=== PATIENT | female | born 1945 | race Caucasian/White ===

== ENCOUNTER → 2017-08-09 | Outpatient (CLI) | payer MEDICARE ==
[~2017-08-09] MED LIST: DICL75 PO; FAMO20 PO; HYDR-3129 PO
--- NOTE | 2017-08-10 18:45 | EKG ---
Date Performed: 08/09/2017 Time Performed: 12:28:30 PTAGE: 71 years EKG: Sinus tachycardia with sinus arrhythmia. Possible inferior infarct - age undetermined Possi ble anterior infarct - age undetermined Low QRS voltages in precordial leads When compared to previou s tracing, sinus rate is slightly higher. Abnormal ECG PREVIOUS TRACING : 07/28/2013 12.10 DOCTOR: Juan Antonio Latif Interpretating Date/Time 08/10/2017 18:44:02
== END ==
LOC: HCAV 12:17
PROVIDERS: ATTEND Orthopaedic Surgery Sports Medicine
DX: Z01.810 Encounter for preprocedural cardiovascular examination (principal); G56.01 Carpal tunnel syndrome, right upper limb; G56.02 Carpal tunnel syndrome, left upper limb; R94.31 Abnormal electrocardiogram [ECG] [EKG]
CPT/HCPCS: 93005

== ENCOUNTER 2017-09-20 15:41 | Emergency (ER) | payer MEDICARE ==
[~2017-09-20] VITALS: Ht 154.9 cm; Wt 70.1 kg
[2017-09-20 15:43] VITALS: BP 145/69; PULSE 118; RESP 16; TEMP 99.5; O2SAT 96
[2017-09-20] MEDS ORDERED: SODIUM CHLOR 0.9% 1000 ML INJ 1,000 ML IV SCH (16:33)
[2017-09-20] MEDS ORDERED: DICL75TA PO (16:33)
[2017-09-20] MEDS ORDERED: FAMO1TAB37 PO (16:33)
[2017-09-20] MEDS ORDERED: GABA300C5 PO (16:33)
[2017-09-20] MEDS ORDERED: TRAM50TA PO (16:33)
--- NOTE | 2017-09-20 16:36 | PD ---
HPI Chief Complaint: GI Complaint Time Seen by Provider: 16:33 Travel History International Travel<30 days: No Contact w/Intl Traveler<30days: No Traveled to known affect area: No History of Present Illness HPI Noted blood in her stool, over the last month or so she has had some speckling changes to her stool. But over the last couple of days she has noted an increase in the amount of reddish hue in her stool. This increase her concern and made her come into the emergency department. Patient denies feeling lightheaded, weak, no active vomiting or diarrhea... However the patient is experiencing some nausea whenever she smells food. Patient denies any aggravating or alleviating factors. Patient denies any associated factors such as fever, rash, cough, rhinorrhea, sore throat, headache, neck pain, chest pain , back pain or any abdominal pain. No known drug allergy Past medical history significant for detached retina status post repair, rheumatoid arthritis, , hysterectomy, and appendectomy. PFSH Past Medical History Hx Anticoagulant Therapy: No Cancer: No Cardiovascular Problems: No Diabetes: No Endocrine: No Genitourinary: No Hepatitis: No Hiatal Hernia: No Immune Disorder: No Musculoskeletal: Yes (ARTHRITIS (OA & RA)) Neurologic: No Psychiatric: No Reproductive: No Respiratory: No Thyroid Disease: No ?: Not Past Surgical History AICD: No Eye Surgery: Yes (DEA. RETINA REP.) Gynecologic Surgery: Yes (C SECTION, HYSTERECTOMY/ APPY) Joint Replacement: No Pacemaker: No Social History Tobacco Use: No Substance Use: No Allergies-Medications (Allergen,Severity, Reaction): Coded Allergies: No Known Allergies (Unverified Adverse Reaction, Unknown, 09/20/17) Reported Meds & Prescriptions Reported Meds & Active Scripts Active Reported Gabapentin 300 Mg Cap 300 Mg PO HS Pepcid (Famotidine) 20 Mg Tab 10 Mg PO DAILY Diclofenac Sodium DR (Diclofenac Sodium) 75 Mg Tabdr 75 Mg PO BID Tramadol (Tramadol HCl) 50 Mg Tab 50 Mg PO BID Review of Systems General / Constitutional: No: Fever Eyes: No: Visual changes HENT: No: Headaches Cardiovascular: No: Chest Pain or Discomfort Respiratory: No: Shortness of Breath Gastrointestinal: Positive: Changes in Bowel Habits Genitourinary: No: Dysuria Musculoskeletal: No: Pain Skin: No Rash Neurologic: No: Weakness Psychiatric: No: Depression Endocrine: No: Polydipsia Hematologic/Lymphatic: No: Easy Bruising Physical Exam Narrative GENERAL: SKIN: Warm and dry. HEAD: Atraumatic. Normocephalic. EYES: Pupils equal and round. No scleral icterus. No injection or drainage. ENT: No nasal bleeding or discharge. Mucous membranes pink and moist. NECK: Trachea midline. No JVD. CARDIOVASCULAR: Regular rate and rhythm. RESPIRATORY: No accessory muscle use. Clear to auscultation. Breath sounds equal bilaterally. GASTROINTESTINAL: Abdomen soft, non-tender, nondistended. MUSCULOSKELETAL: Extremities without clubbing, cyanosis, or edema. No obvious deformities. NEUROLOGICAL: Awake and alert. No obvious cranial nerve deficits. Motor grossly within normal limits. Five out of 5 muscle strength in the arms and legs. Normal speech. PSYCHIATRIC: Appropriate mood and affect; insight and judgment normal. Data Data Last Documented VS Vital Signs Date Time Temp Pulse Resp B/P (MAP) Pulse Ox O2 Delivery O2 Flow Rate FiO2 09/20/17 17:10 102 16 126/62 (83) 95 Room Air 09/20/17 15:43 99.5 Orders Orders Complete Blood Count With Diff (09/20/17 16:33) Comprehensive Metabolic Panel (09/20/17 16:33) Prothrombin Time / Inr (Pt) (09/20/17 16:33) Act Partial Throm Time (Ptt) (09/20/17 16:33) Type And Screen (09/20/17 16:33) Ecg Monitoring (09/20/17 16:33) Iv Access Insert/Monitor (09/20/17 16:33) Oximetry (09/20/17 16:33) Pantoprazole Inj (Protonix Inj) (09/20/17 16:45) Sodium Chlor 0.9% 1000 Ml Inj (Ns 1000 M (09/20/17 16:33) Sodium Chloride 0.9% Flush (Ns Flush) (09/20/17 16:45) Ondansetron Inj (Zofran Inj) (09/20/17 17:30) Labs Laboratory Tests Test 09/20/17 16:50 White Blood Count 10.0 TH/MM3 Red Blood Count 4.13 MIL/MM3 Hemoglobin 12.0 GM/DL Hematocrit 36.3 % Mean Corpuscular Volume 87.9 FL Mean Corpuscular Hemoglobin 29.1 PG Mean Corpuscular Hemoglobin Concent 33.1 % Red Cell Distribution Width 12.1 % Platelet Count 387 TH/MM3 Mean Platelet Volume 7.6 FL Neutrophils (%) (Auto) 76.3 % Lymphocytes (%) (Auto) 8.9 % Monocytes (%) (Auto) 13.8 % Eosinophils (%) (Auto) 0.7 % Basophils (%) (Auto) 0.3 % Neutrophils # (Auto) 7.6 TH/MM3 Lymphocytes # (Auto) 0.9 TH/MM3 Monocytes # (Auto) 1.4 TH/MM3 Eosinophils # (Auto) 0.1 TH/MM3 Basophils # (Auto) 0.0 TH/MM3 CBC Comment AUTO DIFF Prothrombin Time 12.6 SEC Prothromb Time International Ratio 1.2 RATIO Activated Partial Thromboplast Time 41.3 SEC Blood Urea Nitrogen 14 MG/DL Creatinine 0.67 MG/DL Random Glucose 127 MG/DL Total Protein 7.5 GM/DL Albumin 2.3 GM/DL Calcium Level 8.5 MG/DL Alkaline Phosphatase 107 U/L Aspartate Amino Transf (AST/SGOT) 16 U/L Alanine Aminotransferase (ALT/SGPT) 17 U/L Total Bilirubin 0.7 MG/DL Sodium Level 132 MEQ/L Potassium Level 3.5 MEQ/L Chloride Level 98 MEQ/L Carbon Dioxide Level 22.3 MEQ/L Anion Gap 12 MEQ/L Estimat Glomerular Filtration Rate 87 ML/MIN MDM Medical Decision Making Medical Screen Exam Complete: Yes Emergency Medical Condition: Yes Medical Record Reviewed: Yes Differential Diagnosis GI bleed stable versus unstable versus bleeding internal hemorrhoid versus gastritis/peptic ulcer disease Narrative Course CBC shows no leukocytosis, no anemia, normal platelet count, no left shift. Coagulation profile is within normal limits Electrolyte all within normal limits, normal kidney and liver functions. Patient gave history that she has already had a a colonoscopy which showed internal hemorrhoids, done by Dr. Kovacs, patient states that she did not have those hemorrhoids stripped or removed. Based on this historical fact it is believed that her source of GI bleed is likely the same internal hemorrhoid. Patient will need therapeutic colonoscopy for hemorrhoid removal. Currently patient's H&H is stable enough that the patient can perform this as an outpatient procedure. No current need for urgent admission Diagnosis Primary Impression: GI bleed, hemodynamically stable Referrals: Laury Kovacs MD FOR FURTHER CARE OF YOUR INTERNAL HEMORRHOIDS PREVIOUSLY DIAGNOSED BY DR KOVACS IN APR 2017 Patient Instructions: General Instructions, Hemorrhoids (DC) Additional Instructions: Your advised to avoid diclofenac while you have blood in your stool. As this medication can increase the chances of ongoing bleeding. And stated advised to take your tramadol for breakthrough pain only and can take Tylenol over-the- counter as well Scripts Ondansetron Odt (Zofran Odt) 4 Mg Tab 4 MG SL Q8HR Y for Nausea/Vomiting, #30 TAB 0 Refills Prov: Raymond Edwards MD 09/20/17 Disposition: 01 DISCHARGE HOME Condition: Stable Raymond Edwards MD Sep 20, 2017 16:36
[2017-09-20] MEDS ORDERED: SODIUM CHLORIDE 0.9% FLUSH 10 ML FLUSH IVF PRN (16:45)
[2017-09-20] MEDS ORDERED: PANTOPRAZOLE SODIUM 40 MG VIAL IVP ONE (16:45)
[2017-09-20 17:10] VITALS: BP 126/62; PULSE 102; RESP 16; O2SAT 95; O2SAT 96
[2017-09-20 17:22] LABS: AUTOMATED NEUTROPHIL # 7.6 TH/MM3 (1.8-7.7); BASOPHIL % 0.3 % (0.0-2.0); EOSINOPHIL # 0.1 TH/MM3 (0-0.4); EOSINOPHIL % 0.7 % (0.0-4.0); HEMATOCRIT 36.3 % (35.0-46.0); LYMPH % 8.9 % (9.0-44.0); LYMPHOCYTE # 0.9 TH/MM3 (1.0-4.8); MEAN CELL VOLUME 87.9 FL (80.0-100.0); MEAN CORPUSCULAR HEMOGLOBIN 29.1 PG (27.0-34.0); MEAN CORPUSCULAR HGB CONC 33.1 % (32.0-36.0); MEAN PLATELET VOLUME 7.6 FL (7.0-11.0); MONO % 13.8 % (0.0-8.0); MONOCYTE # 1.4 TH/MM3 (0-0.9); NEUT % 76.3 % (16.0-70.0); PLATELET COUNT 387 TH/MM3 (150-450); RED BLOOD COUNT 4.13 MIL/MM3 (4.00-5.30); RED CELL DISTRIBUTION WIDTH 12.1 % (11.6-17.2)
[2017-09-20] MEDS ORDERED: ONDANSETRON HCL 4 MG/2 ML VIAL IVP ONE (17:30)
[2017-09-20 17:43] LABS: CHLORIDE 98 MEQ/L (98-107); SODIUM (NA) 132 MEQ/L (136-145)
[2017-09-20 17:47] LABS: ALBUMIN 2.3 GM/DL (3.4-5.0); BICARBONATE 22.3 MEQ/L (21.0-32.0); CALCIUM 8.5 MG/DL (8.5-10.1); GLUCOSE,RANDOM 127 MG/DL (74-106); INTERNATIONAL NORMALIZED RATIO 1.2 RATIO; PROTHROMBIN TIME - PATIENT 12.6 SEC (9.8-11.6)
[2017-09-20 17:48] LABS: BLOOD UREA NITROGEN 14 MG/DL (7-18)
[2017-09-20 17:50] LABS: ALT (GPT) 17 U/L (10-53); AST (GOT) 16 U/L (15-37)
[2017-09-20 17:51] LABS: CREATININE 0.67 MG/DL (0.50-1.00); GLOMERULAR FILTRATION RATE 87 ML/MIN (>89)
[2017-09-20 17:52] LABS: TOTAL PROTEIN 7.5 GM/DL (6.4-8.2)
[2017-09-20 17:53] LABS: ALKALINE PHOSPHATASE 107 U/L (45-117); TOTAL BILIRUBIN ADULT 0.7 MG/DL (0.2-1.0)
[2017-09-20 19:36] VITALS: BP 114/62; PULSE 89; RESP 16; O2SAT 97
[2017-09-20] MEDS ORDERED: ZOFR4TAB3 SL (19:37)
[2017-09-20 19:42] LABS: BANDS 11 % (0-6); LYMPHOCYTES 18 % (9-44); METAMYELOCYTES 5 % (0-1); MONOCYTES 24 % (0-8); NEUTROPHIL # MANUAL DIFF 5.8 TH/MM3 (1.8-7.7); POLYS (SEG NEUTROPHILS) 42 % (16-70)
[2017-09-20 20:27] VITALS: BP 110/54
== END 2017-09-20 20:32 | disposition home or self-care (01) ==
LOC: PHED 15:41
DX: K92.2 Gastrointestinal hemorrhage, unspecified (principal); K64.8 Other hemorrhoids; M19.90 Unspecified osteoarthritis, unspecified site; M06.9 Rheumatoid arthritis, unspecified
CPT/HCPCS: 80053; 85007; 85027; 85610; 85730; 86850; 86900; 86901; 96361; 96374; 96375; 99284; C9113; J2405; J7030